=== PATIENT | male | born 1955 | race Hispanic/Latino ===

== ENCOUNTER 2017-04-16 07:14 | Day surgery (SDC) | payer BC ==
[2017-04-04 11:24] LABS: Hematocrit 48.7 % (35.5-45.6); Hemoglobin 16.7 gm/dl (11.8-15.2); Mean Corpuscular HGB Conc 34 % (32-34); Mean Corpuscular Hemoglobin 32 pg (28-32); Mean Corpuscular Volume 93 fl (84-94); Platelet Count 112 K/mm3 (140-440); Red Blood Count 5.21 M/mm3 (3.65-5.03); Red Cell Distribution Width 13.5 % (13.2-15.2); White Blood Count 9.7 K/mm3 (4.5-11.0)
--- NOTE | 2017-04-04 11:26 | Anesthesia Consultation ---
Anesthesia Consult and Med Hx Date of service: 04/04/17 - Airway Anesthetic Teeth Evaluation: Dentures, Edentulous ROM Head & Neck: Adequate Mental/Hyoid Distance: Adequate Mallampati Class: Class II Intubation Access Assessment: Probably Good - Pulmonary Exam CTA: Yes - Cardiac Exam Cardiac Exam: RRR - Pre-Operative Health Status ASA Pre-Surgery Classification: ASA3 Proposed Anesthetic Plan: General - Pulmonary Hx Smoking: Yes (1/2 PPD) COPD: Yes (DAILY INHALERS) Hx Sleep Apnea: Yes (DX SLEEP APNEA WITH CPAP USE) - Cardiovascular System Hx Hypertension: Yes (X 2 YRS) Hx Coronary Artery Disease: Yes (non obstructive) Hx Cardia Arrhythmia: Yes (EKG- SINUS JOÃO, PVCs, RBBB) - Central Nervous System Hx Seizures: No CVA: No Hx Back Pain: Yes Hx Psychiatric Problems: Yes (ANXIETY, DEPRESSION) - Endocrine Hx Renal Disease: No Hx Liver Disease: No Hx Thyroid Disease: No - Other Systems Hx Cancer: No - Additional Comments Anesthesia Medical History Comments: CARDIAC CLEARANCE ON CHART, EF 45%
[2017-04-04 11:35] LABS: INR 1.02 (0.87-1.13)
[2017-04-04 11:36] LABS: Partial Thromboplastin Time 30.8 Sec. (24.2-36.6)
[2017-04-04 11:49] LABS: Alanine Aminotransferase 17 units/L (7-56); Albumin 4.3 g/dL (3.9-5); Albumin/Globulin Ratio 1.4 %; Alkaline Phosphatase 73 units/L (35-129); Anion Gap 15 mmol/L; BUN/Creatinine Ratio 13.33; Blood Urea Nitrogen 12 mg/dL (9-20); Calcium 9.7 mg/dL (8.4-10.2); Carbon Dioxide 27 mmol/L (22-30); Chloride 104.2 mmol/L (98-107); Glucose 97 mg/dL (75-100); Potassium 4.4 mmol/L (3.6-5.0); Sodium 142 mmol/L (137-145); Total Protein 7.3 g/dL (6.3-8.2)
[2017-04-04 12:10] LABS: Basophils % (Manual) 0 % (0.0-1.8); Blastocytes % (Manual) 0 %; Diff Status Complete; Platelet Estimate Consistent w Auto; RBC Morphology Normal
[~2017-04-16 07:14] MED LIST: PEPCID PO NR
--- NOTE | 2017-04-16 08:24 | Anesthesia Day of Surgery ---
Anesthesia Day of Surgery - Day of Surgery Patient Examined: Yes Patient H&P Reviewed: Yes Patient is NPO: Yes
[2017-04-16] MEDS ORDERED: NACL 0.9% 1000 ML 1,000 ML ONE ×2 (08:50→11:25)
[2017-04-16] MEDS ORDERED: ANCEF/STERILE WATER 2 GM/20 ML IV NR (08:50)
[2017-04-16] MEDS ORDERED: NACL 0.9% 1000 ML 1,000 ML IV SCH (09:00)
[2017-04-16] MEDS ORDERED: XYLOCAINE MPF 2% ONE (09:57)
[2017-04-16] MEDS ORDERED: DECADRON ONE (09:57)
[2017-04-16] MEDS ORDERED: DIPRIVAN 10 MG/ML IV ONE (09:57)
[2017-04-16] MEDS ORDERED: SUBLIMAZE ONE (09:57)
[2017-04-16] MEDS ORDERED: ZOFRAN ONE (09:57)
--- NOTE | 2017-04-16 10:04 | Short Stay Summary ---
Short Stay Documentation Date of service: 04/16/17 - History H&P: obtained from office - Allergies and Medications Current Medications: Allergies No Known Allergies Allergy (Verified 03/24/17 08:27) Home Medications Medication Instructions Recorded Confirmed Last Taken Type ALPRAZolam [Xanax TAB] 0.25 mg PO BID 03/24/17 04/16/17 04/16/17 06:00 History Alfuzosin HCl [Alfuzosin HCl ER] 10 mg PO DAILY 03/24/17 03/24/17 04/15/17 History Aspirin [Adult Low Dose Aspirin EC] 81 mg PO DAILY 03/24/17 04/16/17 04/10/17 History Bupropion HCl [Bupropion HCl Sr] 150 mg PO DAILY 03/24/17 03/24/17 04/15/17 History Carvedilol [Coreg] 3.125 mg PO BID 03/24/17 04/16/17 04/16/17 06:00 History Cholecalciferol Vit D3 [Vitamin D3] 2,000 mg PO DAILY 03/24/17 03/24/17 History Fluticasone/Vilanterol [Breo 2 puff INHALATION DAILY 03/24/17 04/16/17 04/16/17 06:30 History Ellipta 200-25 Mcg INH] Lisinopril [Zestril] 20 mg PO QDAY 03/24/17 04/16/17 04/16/17 06:00 History Meloxicam 15 mg PO QDAY 03/24/17 04/16/17 04/10/17 History Rosuvastatin (Nf) [Crestor] 20 mg PO QHS 03/24/17 03/24/17 04/15/17 History Travoprost (Benzalkonium) 1 drop INTRAOCULA DAILY 03/24/17 03/24/17 04/15/17 History [Travoprost 0.004% Eye Drop] Venlafaxine HCl [Venlafaxine ER] 150 mg PO DAILY 03/24/17 03/24/17 04/15/17 History Active Medications Cefazolin Sodium (Ancef/Sterile Water 2 Gm/20 Ml) 2 gm IV PREOP NR Stop: 04/16/17 12:00 Famotidine (Pepcid) 20 mg PO PREOP NR Stop: 04/16/17 12:00 Last Admin: 04/16/17 08:59 Dose: 20 mg Sodium Chloride (Nacl 0.9% 1000 Ml) 1,000 mls @ 75 mls/hr IV DIRECT NEELAM Stop: 04/16/17 12:00 Last Admin: 04/16/17 08:57 Dose: 75 mls/hr - Brief post op/procedure progress note Date of procedure: 04/16/17 Pre-op diagnosis: hemat abn cyto Post-op diagnosis: same Procedure: cysto rpg bladder bx Anesthesia: GETA Findings: rpg cysto neg, prost open past tur, mild trab Surgeon: NAHUM ESTEVEZ Estimated blood loss: minimal Pathology: list (std bl bx x5) Specimen disposition: to lab Condition: stable - Hospital course Hospital course: orpacuhome - Disposition Condition at discharge: Good Disposition: DC-01 TO HOME OR SELFCARE Short Stay Discharge Plan Activity: advance as tolerated Diet: advance as tolerated Follow up with: NAHUM ESTEVEZ MD [Staff Physician] - 7 Days
[2017-04-16] MEDS ORDERED: ePHEDrine SULFATE ONE (10:33)
[2017-04-16] MEDS ORDERED: ePHEDrine SULFATE IV PRN (11:22)
--- NOTE | 2017-04-16 13:35 | Post Anesthesia Evaluation ---
- Post Anesthesia Evaluation Patient Participated: Yes Airway Patent: Yes Stable Respiratory Function: Yes Nausea/Vomiting: No Temp > 96.8F: Yes Pain Manageable: Yes Adequeate Hydration: Yes Anesthesia Complications: No
--- NOTE | 2017-04-16 14:37 | Fluoroscopy Report ---
RETROGRADE PYELOGRAM: History: Hematuria. There is adequate filling of the ureters and intrarenal collecting systems with no filling defects or anatomic abnormalities identified.
[2017-04-16 18:58] VITALS: BP 123/75
== END 2017-04-16 13:03 | disposition home or self-care (01) ==
LOC: OR 07:14
PROVIDERS: ATTEND Urology
DX: N30.20 Other chronic cystitis without hematuria (principal); J44.9 Chronic obstructive pulmonary disease, unspecified; G47.30 Sleep apnea, unspecified; I10 Essential (primary) hypertension; I25.10 Atherosclerotic heart disease of native coronary artery without angina pectoris; F41.9 Anxiety disorder, unspecified; F32.9 Major depressive disorder, single episode, unspecified; Z87.891 Personal history of nicotine dependence
CPT/HCPCS: 36415; 52204; 74420; 80053; 85007; 85025; 85049; 85610; 85730; 88305; C1758; J0690; J1100; J2405; J2704; J3010; J7030; Q9967